=== PATIENT | female | born 1995 | race African-American/Black ===

== ENCOUNTER 2018-11-29 03:05 | Inpatient (IN) | payer OTHER ==
[2018-11-29] MEDS ORDERED: DEXTROSE 5%-LACTATED RINGERS 1,000 ML IV SCH (04:15)
[2018-11-29] MEDS ORDERED: DEXTROSE 5%-LACTATED RINGERS 1,000 ML IV ONE ×2 (04:15→05:14)
[2018-11-29] MEDS ORDERED: BUTORPHANOL TARTRATE 2 MG/ML VIAL IVPB ONE (04:45)
[2018-11-29] MEDS ORDERED: PROMETHAZINE HCL 25 MG/1 ML VIAL IVPB ONE (04:45)
[2018-11-29] MEDS ORDERED: BUTORPHANOL TARTRATE 2 MG/ML VIAL ONE (05:00)
[2018-11-29] MEDS ORDERED: PROMETHAZINE HCL 25 MG/1 ML VIAL ONE (05:00)
[2018-11-29 05:25] VITALS: BMI 36.1
[2018-11-29] MEDS ORDERED: AMPICILLIN SODIUM 2 GM VIAL ONE (05:38)
[2018-11-29] MEDS ORDERED: AMPICILLIN - 2 GM in SODIUM CHLORIDE 100 ML IVPB ONE (05:45)
[2018-11-29] MEDS: ELECTROLYTE-148 SOLN 1,000 ML IV SCH ×2 (06:00→09:50)
[2018-11-29 06:21] LABS: COCAINE, UR NEGATIVE ng/ml (CUTOFF=300); METHADONE, UR NEGATIVE ng/ml (CUTOFF=300); OPIATES, URI NEGATIVE ng/ml (CUTOFF=300); PHENCYCLIDINE,URINE NEGATIVE ng/ml (CUTOFF=25); URINE AMPHETAMINES NEGATIVE ng/ml (CUTOFF=500); URINE BARBITURATES NEGATIVE ng/ml (CUTOFF=200); URINE BENZODIAZEPINES NEGATIVE ng/ml (CUTOFF=200)
[2018-11-29] MEDS ORDERED: FENTANYL/BUPIVACAINE/NS/PF - PCEA - 50 ML DISP.SYRIN EP ONE (08:22)
--- NOTE | 2018-11-29 08:55 | PN ---
Progress Note (short form) - Note Progress Note: cx 5 cm, 100 vx -3 mi, bulging, fhr cat 1, regular contraction, wants epidural
--- NOTE | 2018-11-29 09:18 | HP ---
Past Medical History - Admission Chief Complaint: Labor pain History of Present Illness: 23 yo @ 39 weeks gestation, EDC 12/02/18, with previous , admitted for labor pain. Patient was previously scheduled for repeat but has decided for . History Source: Patient Limitations to Obtaining History: No Limitations - Past Medical History ...: 6 ...Para: 1 ...Term: 1 ...: 0 ...Spon : 0 ...Induced : 4 ...Multiple Gestation: 0 ...LMP: 02/26/18 ... Weeks Gestation by Dates: 39.3 ...EDC by Dates: 12/03/18 ...EDC by Sono: 12/02/18 - Past Surgical History Past Surgical History: Yes: Hx Myomectomy: No Hx Transabdominal Cerclage: No - Smoking History Smoking history: Former smoker Have you smoked in the past 12 months: Yes If you are a former smoker, when did you quit?: June 2018 - Alcohol/Substance Use Hx Alcohol Use: No History of Substance Use: reports: None - Social History History of Recent Travel: No Home Medications - Allergies Allergies/Adverse Reactions: Allergies Allergy/AdvReac Type Severity Reaction Status Date / Time No Known Allergies Allergy Verified 11/29/18 03:42 - Home Medications Home Medications: Ambulatory Orders Prenat 115/Iron Fum/Folic/Dss [ 19 Tablet] 1 tab PO DAILY 11/17/18 Family Disease History - Family Disease History Family History: Unremarkable Review of Systems - Review of Systems Constitutional: reports: No Symptoms Eyes: reports: No Symptoms HENT: reports: No Symptoms Neck: reports: No Symptoms Cardiovascular: reports: No Symptoms Respiratory: reports: No Symptoms Gastrointestinal: reports: No Symptoms Genitourinary: reports: Pain Breasts: reports: No Symptoms Reported Musculoskeletal: reports: No Symptoms Neurological: reports: No Symptoms Endocrine: reports: No Symptoms Hematology/Lymphatic: reports: No Symptoms Psychiatric: reports: No Symptoms Pain Intensity: 7 Physical Exam - Maternity Vital Signs: Vital Signs Temperature 97.8 F 11/29/18 08:00 Pulse Rate 65 11/29/18 08:00 Respiratory Rate 20 11/29/18 08:00 Blood Pressure 142/94 11/29/18 08:00 O2 Sat by Pulse Oximetry (%) Constitutional: Yes: Well Nourished Eyes: Yes: Conjunctiva Clear HENT: Yes: Atraumatic Neck: Yes: Supple Cardiovascular: Yes: Regular Rate and Rhythm Lungs: Clear to auscultation Breast(s): Yes: WNL - Abdominal Exam/OB Number of Fetuses: Single Presentation: Vertex - Vaginal Exam/OB Dilatation (cm): 4 Effacement (%): 90 Amniotic Membrane Status: Intact Presentation: Vertex/Position Station: -2 - Physical Exam Musculoskeletal: Yes: WNL Extremities: Yes: WNL ...Motor Strength: WNL Psychiatric: Yes: Alert, Oriented Problem List - Problems (1) Previous section Code(s): Z98.891 - HISTORY OF UTERINE SCAR FROM PREVIOUS SURGERY (2) Pain during labor Code(s): O99.89 - OTH DISEASES AND CONDITIONS COMPL PREG/CHLDBRTH; R52 - PAIN, UNSPECIFIED Assessment/Plan Previous in labor 39 weeks gestation Admit for Analgesia as needed Anticipate
[2018-11-29] MEDS ORDERED: NALOXONE HCL 0.4 MG/ML VIAL IVPUSH PRN (09:20)
[2018-11-29] MEDS ORDERED: FENTANYL/BUPIVACAINE/NS/PF - PCEA - 50 ML DISP.SYRIN EP SCH (09:30)
[2018-11-29] MEDS ORDERED: AMPICILLIN SODIUM 1 GM VIAL ONE (10:05)
[2018-11-29] MEDS: AMPICILLIN - 1 GM in SODIUM CHLORIDE 100 ML IVPB SCH ×3 (10:10→23:54)
--- NOTE | 2018-11-29 11:00 | PN ---
Progress Note (short form) - Note Progress Note: 1020 am cx 7 cm ,80 vx -2 arom, clear , fhr cat 1, cotraction q 2 min
[2018-11-29] MEDS ORDERED: CITRIC ACID/SODIUM CITRATE 30 ML UNIT-DOSE CUP PO ONE (12:29)
--- NOTE | 2018-11-29 12:31 | PN ---
Progress Note (short form) - Note Progress Note: cx 8 cm, ant lip edma, cx swollen . fhr cat 1, regular contraction . advised c/s
[2018-11-29] MEDS ORDERED: IBUPROFEN 800 MG/8 ML IJ IVPB PRN (13:14)
[2018-11-29] MEDS ORDERED: BENZOCAINE 28 GM HEMORRHOIDAL OINTMENT PR PRN (13:14)
[2018-11-29] MEDS ORDERED: WITCH HAZEL 50% (TUCKS) 40 PAD/JAR PAD TP PRN (13:14)
[2018-11-29] MEDS ORDERED: BENZOCAINE 20% 57 GM BOTTLE TP PRN (13:14)
[2018-11-29] MEDS ORDERED: diphenhydrAMINE HCL 25 MG CAPSULE (FP) PO PRN (13:14)
[2018-11-29] MEDS ORDERED: OXYTOCIN 20 UNITS in 0.9% NS 20 UNIT/1,000 ML INFUS.BAG IV SCH (13:15)
[2018-11-29] MEDS ORDERED: LIDO 2%/EPI 1:200000 PRESRVFRE (20 ML SDVIAL) ONE (13:24)
[2018-11-29] MEDS ORDERED: SUCCINYLCHOLINE CHLORIDE 200 MG/10 ML VIAL ONE (13:28)
[2018-11-29] MEDS ORDERED: PROPOFOL 20 ML ONE (13:28)
[2018-11-29] MEDS ORDERED: ceFAZolin SODIUM 1 GM VIAL ONE (13:33)
[2018-11-29] MEDS ORDERED: PHENYLEPHRINE HCL 10 MG/1 ML SINGLE DOSE VIAL ONE ×2 (13:33→14:03)
[2018-11-29] MEDS ORDERED: OXYTOCIN 20 UNITS in 0.9% NS 20 UNIT/1,000 ML INFUS.BAG IV ONE ×2 (13:35→14:22)
[2018-11-29] MEDS ORDERED: morphine SULFATE/Preservative Free 0.5 MG/ML (1cc Syringe) ONE ×6 (13:41)
[2018-11-29] MEDS ORDERED: morphine SULFATE/Preservative Free 0.5 MG/ML (1cc Syringe) EP ONE (14:26)
[2018-11-29] MEDS ORDERED: ONDANSETRON 4 MG/2 ML VIAL IVPUSH PRN (14:26)
[2018-11-29] MEDS ORDERED: IBUPROFEN 800 MG/8 ML IJ IVPB ONE (15:06)
[2018-11-29] MEDS: METHYLERGONOVINE MALEATE 0.2 MG/1 ML AMP IM PRN ×2 (16:48→17:54)
[2018-11-29 17:57] LABS: BASO % 0.5 % (0-2.0); HEMATOCRIT 30.3 % (32.4-45.2); HEMOGLOBIN 10.1 GM/dL (10.7-15.3); LYMPH % 9.8 % (8-40); MCH 28.5 pg (25.7-33.7); MCHC 33.5 g/dl (32.0-36.0); MEAN CELL VOLUME 85.1 fl (80-96); MEAN PLT VOLUME 7.7 fl (7.5-11.1); MONO % 6.5 % (3.8-10.2); NEUT % 83.2 % (42.8-82.8); PLATELET COUNT 243 K/MM3 (134-434); RBC 3.56 M/mm3 (3.60-5.2); RDW 14.3 % (11.6-15.6); WHITE BLOOD COUNT 13.5 K/mm3 (4.0-10.0)
[2018-11-29] MEDS: CEFAZOLIN 1 GM/D5W 1 GM/50 ML BAG IVPB SCH (18:04)
[2018-11-30] MEDS: CEFAZOLIN 1 GM/D5W 1 GM/50 ML BAG IVPB SCH (01:25)
[2018-11-30] MEDS: AMPICILLIN - 1 GM in SODIUM CHLORIDE 100 ML IVPB SCH ×3 (01:54→22:50)
--- NOTE | 2018-11-30 06:13 | PN ---
Post Progress Note Post Day: 1 Type of Delivery: Repeat C/S Vital Signs: Vital Signs Temperature 99 F 11/30/18 01:27 Pulse Rate 95 H 11/30/18 01:27 Respiratory Rate 20 11/30/18 06:00 Blood Pressure 127/78 11/30/18 01:27 O2 Sat by Pulse Oximetry (%) 100 11/29/18 15:01 Breast Exam: Yes: Soft Uterus: Yes: Fundus Firm Incision: Yes: Dressing dry and intact Abdomen/GI: Yes: Abdomen soft Lochia: Yes: Rubra Lochia, amount: Small Extremities: Yes: Calves non-tender Perineum: Yes: Intact Activity: Ambulating - Labs Labs: CBC WBC 13.5 K/mm3 (4.0-10.0) H 11/29/18 17:20 RBC 3.56 M/mm3 (3.60-5.2) L 11/29/18 17:20 Hgb 10.1 GM/dL (10.7-15.3) L 11/29/18 17:20 Hct 30.3 % (32.4-45.2) L 11/29/18 17:20 MCV 85.1 fl (80-96) 11/29/18 17:20 MCH 28.5 pg (25.7-33.7) 11/29/18 17:20 MCHC 33.5 g/dl (32.0-36.0) 11/29/18 17:20 RDW 14.3 % (11.6-15.6) 11/29/18 17:20 Plt Count 243 K/MM3 (134-434) 11/29/18 17:20 MPV 7.7 fl (7.5-11.1) 11/29/18 17:20 Absolute Neuts (auto) 11.3 K/mm3 (1.5-8.0) H 11/29/18 17:20 Neutrophils % 83.2 % (42.8-82.8) H 11/29/18 17:20 Lymphocytes % 9.8 % (8-40) D 11/29/18 17:20 Monocytes % 6.5 % (3.8-10.2) 11/29/18 17:20 Eosinophils % 0.0 % (0-4.5) D 11/29/18 17:20 Basophils % 0.5 % (0-2.0) 11/29/18 17:20 Nucleated RBC % 0 % (0-0) 11/29/18 17:20 Assessment/Plan check cbc oob pain control reg diet as tolerated
[2018-11-30 07:35] LABS: BASO % 0.1 % (0-2.0); EOS % 0.2 % (0-4.5); HEMOGLOBIN 8.6 GM/dL (10.7-15.3); LYMPH % 11.2 % (8-40); MCH 28.7 pg (25.7-33.7); MCHC 34.3 g/dl (32.0-36.0); MEAN CELL VOLUME 83.8 fl (80-96); MEAN PLT VOLUME 7.7 fl (7.5-11.1); MONO % 5.5 % (3.8-10.2); PLATELET COUNT 224 K/MM3 (134-434); RBC 2.99 M/mm3 (3.60-5.2); RDW 14.3 % (11.6-15.6); WHITE BLOOD COUNT 11.1 K/mm3 (4.0-10.0)
--- NOTE | 2018-11-30 08:01 | PN ---
Progress Note (short form) - Note Progress Note: Anesthesiology Post-op POD#1 s/p C/S under epidural with duramorph. Pt. is resting comfortably in bed in NAD. She denies h/a or n/v. Pain is under control. She is able to move legs without difficulty. VSS. 23 y.o. woman with stable post-operative course. Continue management as per primary team.
--- NOTE | 2018-11-30 10:15 | OP ---
DATE OF OPERATION: 11/29/2018 PREOPERATIVE DIAGNOSIS: , 39 weeks, previous section, failure of vaginal after section, request of repeat section. POSTOPERATIVE DIAGNOSIS: , 39 weeks, previous section, failure of vaginal after section, request of repeat section. PROCEDURE: Repeat low segment transverse section. SURGEON: Red Diallo MD END PACKER: GRACE Omer ANESTHESIA: Epidural. ESTIMATED BLOOD LOSS: 500 mL. OPERATION: The patient was taken to the operating room, had adequate epidural anesthesia. Abdomen and perineum were prepped and draped. Pfannenstiel abdominal skin incision was made over the previous incision. This incision extended to the fascia with cautery. Fascia was excised transversely, from the rectus muscle. Peritoneum was grasped with 2 Yamel clamps and entered. Upon entering the abdominal cavity, upper abdomen was checked. Bowels were packed away. Then, uterovesical fold of peritoneum established and bladder was pushed down. A low transverse uterine incision was made. Incision extended laterally. delivered from occiput posterior position. Cord around the neck x1 reduced, and a live baby was delivered without any difficulty. Placenta was delivered manually. Uterine cavity was cleaned of all remaining tissue. Uterine incision was closed in 2 layers, 1st layer with 0 Biosyn continuous suture, the 2nd layer with 0 Biosyn imbricating the 1st layer. Bladder flap was closed with 0 Biosyn continuous suture. Both tubes and ovaries were checked, were normal. No active bleeding was seen Abdomen was several times irrigated, and then, all the lap pad, sponge, and instrument counts were correct. Peritoneum was closed with 0 Biosyn continuous suture. Muscles were brought together with interrupted suture of 0 Biosyn. Fascia was closed with 0 Biosyn continuous suture, subcutaneous fat with interrupted suture of 0 Biosyn, and the skin was closed with kitty. Patient tolerated the procedure well, left the OR in good condition. RED DIALLO M.D. [id number]
[2018-11-30] MEDS: ACETAMINOPHEN 325 MG TABLET (FP) PO PRN ×2 (11:07→16:26)
[2018-11-30] MEDS: IBUPROFEN 600 MG TABLET (FP) PO PRN (11:08)
[2018-11-30] MEDS: oxyCODONE HCL 5 MG TABLET PO PRN ×3 (13:12→21:33)
[2018-11-30] MEDS ORDERED: BISACODYL 10 MG SUPP.RECT PR PRN (13:14)
[2018-11-30] MEDS: SIMETHICONE 80 MG TAB.CHEW (FP) PO PRN (21:32)
[2018-12-01] MEDS: SIMETHICONE 80 MG TAB.CHEW (FP) PO PRN (02:15)
[2018-12-01] MEDS: oxyCODONE HCL 5 MG TABLET PO PRN ×4 (02:15→21:24)
[2018-12-01] MEDS: IBUPROFEN 600 MG TABLET (FP) PO PRN ×2 (02:16→21:24)
[2018-12-01] MEDS: AMPICILLIN - 1 GM in SODIUM CHLORIDE 100 ML IVPB SCH ×2 (03:22→06:46)
--- NOTE | 2018-12-01 09:31 | PN ---
Post Progress Note Post Day: 2 Type of Delivery: Repeat C/S Vital Signs: Vital Signs Temperature 97.9 F 11/30/18 20:58 Pulse Rate 98 H 11/30/18 20:58 Respiratory Rate 20 11/30/18 20:58 Blood Pressure 117/69 11/30/18 20:58 O2 Sat by Pulse Oximetry (%) 100 11/29/18 15:01 Uterus: Yes: Fundus below umbilicus Incision: Yes: Dressing dry and intact Abdomen/GI: Yes: Abdomen soft Lochia: Yes: Rubra Lochia, amount: Small Extremities: Yes: Calves non-tender Activity: Ambulating (Pain controlled. Ambulating. No fevers/chills.) - Labs Labs: CBC WBC 11.1 K/mm3 (4.0-10.0) H 11/30/18 06:35 RBC 2.99 M/mm3 (3.60-5.2) L 11/30/18 06:35 Hgb 8.6 GM/dL (10.7-15.3) L 11/30/18 06:35 Hct 25.0 % (32.4-45.2) L D 11/30/18 06:35 MCV 83.8 fl (80-96) 11/30/18 06:35 MCH 28.7 pg (25.7-33.7) 11/30/18 06:35 MCHC 34.3 g/dl (32.0-36.0) 11/30/18 06:35 RDW 14.3 % (11.6-15.6) 11/30/18 06:35 Plt Count 224 K/MM3 (134-434) 11/30/18 06:35 MPV 7.7 fl (7.5-11.1) 11/30/18 06:35 Absolute Neuts (auto) 9.2 K/mm3 (1.5-8.0) H 11/30/18 06:35 Neutrophils % 83.0 % (42.8-82.8) H 11/30/18 06:35 Lymphocytes % 11.2 % (8-40) 11/30/18 06:35 Monocytes % 5.5 % (3.8-10.2) 11/30/18 06:35 Eosinophils % 0.2 % (0-4.5) D 11/30/18 06:35 Basophils % 0.1 % (0-2.0) 11/30/18 06:35 Nucleated RBC % 0 % (0-0) 11/30/18 06:35 Assessment/Plan 23yo s/p R LTCS, POD#2 Routine PP care OOB, ambulate Labs reviewed Anticipate d/c to home by POD#4 Ino Rosas MD
[2018-12-01] MEDS: ACETAMINOPHEN 325 MG TABLET (FP) PO PRN ×3 (09:44→21:25)
[2018-12-01] MEDS ORDERED: SENNOSIDES/DOCUSATE COMBO (SENNA PLUS) TABLET (UD) PO PRN (22:00)
[2018-12-02] MEDS: DEXTROSE 5%-LACTATED RINGERS 1,000 ML IV SCH ×2 (04:44→04:45)
[2018-12-02] MEDS: AMPICILLIN - 1 GM in SODIUM CHLORIDE 100 ML IVPB SCH ×3 (04:45→04:50)
[2018-12-02] MEDS: ELECTROLYTE-148 SOLN 1,000 ML IV SCH ×4 (04:46→04:50)
[2018-12-02] MEDS: SIMETHICONE 80 MG TAB.CHEW (FP) PO PRN ×2 (05:34→09:03)
[2018-12-02] MEDS: oxyCODONE HCL 5 MG TABLET PO PRN ×2 (05:35→09:01)
[2018-12-02] MEDS: ACETAMINOPHEN 325 MG TABLET (FP) PO PRN ×2 (05:35→09:02)
[2018-12-02 07:37] LABS: BASO % 0.4 % (0-2.0); EOS % 2.5 % (0-4.5); HEMATOCRIT 22.9 % (32.4-45.2); LYMPH % 24.9 % (8-40); MCH 29.2 pg (25.7-33.7); MCHC 34.9 g/dl (32.0-36.0); MEAN CELL VOLUME 83.8 fl (80-96); MEAN PLT VOLUME 7.3 fl (7.5-11.1); MONO % 5.8 % (3.8-10.2); NEUT % 66.4 % (42.8-82.8); PLATELET COUNT 257 K/MM3 (134-434); RBC 2.74 M/mm3 (3.60-5.2); RDW 14.1 % (11.6-15.6); WHITE BLOOD COUNT 7.6 K/mm3 (4.0-10.0)
--- NOTE | 2018-12-02 10:08 | DS ---
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: Vital Signs Temperature 98.2 F 12/01/18 22:00 Pulse Rate 98 H 12/01/18 22:00 Respiratory Rate 18 12/01/18 22:00 Blood Pressure 131/84 12/01/18 22:00 O2 Sat by Pulse Oximetry (%) 100 11/29/18 15:01 Constitutional: Yes: Well Nourished Eyes: Yes: Conjunctiva Clear HENT: Yes: Atraumatic Neck: Yes: Supple Cardiovascular: Yes: Regular Rate and Rhythm Respiratory: Yes: Regular Gastrointestinal: Yes: Normal Bowel Sounds ...Rectal Exam: Yes: WNL Renal/: Yes: WNL Pelvis: Yes: WNL Vaginal Exam: Yes: Normal Cervix: Yes: Normal Uterus: Yes: Firm ....Post : Yes: Uterus firm Wound/Incision: Yes: [place] Intact Neurological: Yes: Alert, Oriented ...Motor Strength: WNL Psychiatric: Yes: Alert, Oriented Labs: CBC, BMP 12/02/18 06:05 Delivery - Delivery Type of Anesthesia: Epidural Episiotomy/Laceration: None EBL (cc): 500 Delivery, Single - Stages of Labor Date 1st Stage Initiatied: 11/29/18 Time 1st Stage Initiated: 02:30 Date of Delivery: 11/29/18 Time of Delivery: 13:41 Time Placenta Delivered: 13:42 - 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 Present: Yes Name: Trent Willis Gender: Female Weight: 7 lb 1 oz Position: OT Total Hours ROM (Hrs/Mins): 3 hours 17 minutes - 1 Minute Total Score: 9 5 Minutes Total Score: 9 - Feeding Plan Initial Plan: Elected not to breastfeed exclusively throughout hospitalization Discharge Summary Reason For Visit: ADMIT LABOR Current Active Problems Pain during labor (Acute) Previous section (Acute) Procedures: Principal: Repeat Low Transverse Hospital Course: Routine post op care Condition: Stable - Instructions Diet, Activity, Other Instructions: Regular Diet Follow up on 12/06 in the office to have your kitty removed Referrals: Wendy Rosas MD [Staff Physician] - Disposition: HOME - Home Medications Comprehensive Discharge Medication List: Ambulatory Orders Prenat 115/Iron Fum/Folic/Dss [ 19 Tablet] 1 tab PO DAILY 11/17/18 Ibuprofen 600 mg PO Q6H PRN #30 tablet 12/01/18 Oxycodone HCl/Acetaminophen [Percocet 5-325 mg Tablet -] 1 - 2 tab PO Q6H PRN # 15 tab MDD 4 12/01/18 Ibuprofen [Motrin -] 600 mg PO Q4H PRN #60 tablet 12/02/18
[2018-12-02 13:37] VITALS: BP 121/84; PULSE 74; TEMP 98.3
--- NOTE | 2018-12-06 13:06 | PATH ---
Surgical Pathology Report Patient Name: WADE MENDEZ Med. Rec. 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 Specimen(s) Received PLACENTA Clinical History , C- section 04/07, Ectopic with right salpingectomy Repeat Final Diagnosis PLACENTA, SECTION: 422 G THIRD TRIMESTER PLACENTA WITH TRIVASCULAR UMBILICAL CORD, UNREMARKABLE PLACENTAL MEMBRANES, AND FOCAL INTRAPARENCHYMAL HEMORRHAGE (<5% OF PLACENTAL SURFACE). Electronically Signed Radha Christy M.D. Gross Description The specimen is received fresh labeled placenta and is a 422 gram, 18 x16 x 2.2cm. placenta with attached membranes and umbilical cord. The attached membranes are glistening, translucent, and insert marginally. The umbilical cord measures 53 cm. in length and averages 1.1cm. in diameter. The cord inserts centrally, 5 centimeter to the nearest margin. No true knots or strictures are identified. Cut surface of the umbilical cord reveals 3 vessels. Sectioning reveals red-brown, spongy parenchyma. Two foci of yellow discoloration and hemorrhagic area , measuring 1.5 and 2cm in greatest dimension, respectively, are present. Vacuum Extractor Operator sections are submitted in three cassettes as follows: 1- membrane rolls and umbilical cord; 2- full thickness sections of placenta 3- placenta with yellow discoloration 4- placenta with hemorrhage. KWS/12/01/2018 sulki/12/01/2018
== END 2018-12-02 13:30 | disposition home or self-care (01) | DRG 788 ==
LOC: JDEL 03:05 → JLDR 04:35 → J3W 16:00
PROVIDERS: ADMIT Obstetrics & Gynecology; ATTEND Obstetrics & Gynecology
PROC: 10D00Z1 Extraction of Products of Conception, Low, Open Approach (ICD-10-PCS; principal; 2018-11-30)
DX: O34.211 Maternal care for low transverse scar from previous cesarean delivery (principal); O69.81X0 Labor and delivery complicated by cord around neck, without compression, not applicable or unspecified; O26.893 Other specified pregnancy related conditions, third trimester; Z87.891 Personal history of nicotine dependence; Z3A.39 39 weeks gestation of pregnancy; Z37.0 Single live birth
CPT/HCPCS: 36415; 80307; 85025; 88307-TC

== ENCOUNTER 2020-08-03 00:31 | Emergency (ER) | payer OTHER ==
[2020-08-03 01:03] VITALS: PULSE 74; TEMP 99.6; BMI 31.8
[2020-08-03] MEDS ORDERED: ACETAMINOPHEN 500 MG TABLET (FP) PO ONE (02:41)
[2020-08-03] MEDS ORDERED: ACETAMINOPHEN 325 MG TABLET (FP) ONE (03:00)
[2020-08-03 03:22] LABS: BASO % 0.7 % (0-2.0); HEMATOCRIT 39.2 % (32.4-45.2); HEMOGLOBIN 13.6 GM/dL (10.7-15.3); MCHC 34.7 g/dl (32.0-36.0); MEAN CELL VOLUME 86.6 fl (80-96); MONO % 6.5 % (3.8-10.2); NEUT % 59.8 % (42.8-82.8); PLATELET COUNT 282 K/MM3 (134-434); RBC 4.53 M/mm3 (3.60-5.2); RDW 13.2 % (11.6-15.6); WHITE BLOOD COUNT 7.6 K/mm3 (4.0-10.0)
[2020-08-03 03:44] LABS: CALCIUM 8.7 mg/dL (8.5-10.1)
[2020-08-03 03:45] LABS: ALBUMIN 3.9 g/dl (3.4-5.0); BLOOD UREA NITROGEN 11.4 mg/dL (7-18)
[2020-08-03 03:47] LABS: CREATININE 0.7 mg/dL (0.55-1.3)
[2020-08-03 03:49] LABS: BILIRUBIN,TOTAL 0.2 mg/dL (0.2-1); TOT PROT 6.9 g/dl (6.4-8.2)
[2020-08-03 05:26] VITALS: BP 164/104
== END 2020-08-03 05:27 | disposition home or self-care (01) ==
LOC: JER 00:31
DX: J34.1 Cyst and mucocele of nose and nasal sinus (principal)
CPT/HCPCS: 36415; 70491-TC; 71046-TC-FY; 80053; 84443; 84703; 85025; 99285-25; Q9967

== ENCOUNTER → 2020-09-23 | Day surgery (SDC) | payer OTHER | END | disposition home or self-care (01) | LOC: JRADIR 10:27 | PROVIDERS: ATTEND Registered Nurse | PROC: 0G9K3ZX Drainage of Thyroid Gland, Percutaneous Approach, Diagnostic (ICD-10-PCS; principal; 2020-09-23) | DX: E04.1 Nontoxic single thyroid nodule (principal) | CPT/HCPCS: 76942; 88173; 88305-TC ==

== ENCOUNTER 2021-09-02 12:07 | Emergency (ER) | payer OTHER ==
[2021-09-02 12:25] VITALS: BP 134/90; PULSE 72; TEMP 98.4; BMI 33.3
[2021-09-02] MEDS ORDERED: ONDANSETRON *ODT* 4 MG TABLET SL ONE (13:29)
[2021-09-02] MEDS ORDERED: ACETAMINOPHEN 325 MG TABLET (FP) PO ONE (13:29)
[2021-09-02] MEDS ORDERED: ONDANSETRON *ODT* 4 MG TABLET ONE (13:31)
[2021-09-02] MEDS ORDERED: ACETAMINOPHEN 500 MG TABLET (FP) ONE (13:31)
[2021-09-02] MEDS ORDERED: KETOROLAC TROMETHAMINE 60 MG/2 ML VIAL IM ONE (15:29)
[2021-09-02] MEDS ORDERED: KETOROLAC TROMETHAMINE 30 MG/1 ML VIAL ONE (15:37)
== END 2021-09-02 15:40 | disposition home or self-care (01) ==
LOC: JERFT 12:07
PROC: 3E0233Z Introduction of Anti-inflammatory into Muscle, Percutaneous Approach (ICD-10-PCS; principal; 2021-09-02)
DX: S06.0X1A Concussion with loss of consciousness of 30 minutes or less, initial encounter (principal); S09.90XA Unspecified injury of head, initial encounter
CPT/HCPCS: 70450-TC; 96372; 99284-25; Q0162